=== PATIENT | female | born 1990 | race Caucasian/White ===

== ENCOUNTER 2018-10-13 18:04 | Emergency (ER) | payer MEDICAID ==
[2014-09-08 15:01] VITALS: Wt 99.8 kg
[~2018-10-13 18:04] MED LIST: Acetaminophen/Codeine PO; Ibuprofen PO; MULT1TAB54 PO
--- NOTE | 2018-10-13 18:11 | ER Report ---
History and Physical Time Seen By MD: 18:11 HPI/ROS CHIEF COMPLAINT: abdominal pain HISTORY OF PRESENT ILLNESS: This is a 28 year old female. She is having abdominal pain, started earlier this afternoon, in lower abdomen, crampy and sharp in nature, nothing makes it worse or better. Radiates to her right side and back. No fevers or chills. No dysuria. Normal bowels. No vaginal bleeding. She is 16 weeks , second . Mild discharge. Allergies: Coded Allergies: morphine (Verified Adverse Reaction, Intermediate, NAUSEA/VOMITING, 10/13/18) oxycodone (Verified Adverse Reaction, Intermediate, NAUSEA/VOMITING, 10/13/18) Home Meds Reported Medications Vits W-Ca,Fe,Fa(<1MG) ( VITAMINS) 1 Each Tablet, 1 EACH PO DAILY, TAB 10/13/18 Discontinued Reported Medications [None] No Conflict Check 02/04/14 Reviewed Nurses Notes: Yes Hx Smoking: Yes Smoking Status: Current: Every Day Smoker Exposure to Second Hand Smoke?: Yes Hx Substance Use Disorder: Yes (MARIJUANA, COCAIN OCC) Hx Alcohol Use: Yes Constitutional Vital Sign - Last 24 Hours 10/13/18 10/13/18 10/13/18 10/13/18 18:16 18:24 18:30 18:34 Temp 97.7 Pulse 93 95 Resp 12 B/P (MAP) 124/93 (103) 124/93 130/90 (103) Pulse Ox 95 94 O2 Delivery Room Air 10/13/18 10/13/18 10/13/18 10/13/18 19:04 19:14 19:30 19:34 Pulse 84 75 B/P (MAP) 121/83 (96) 114/76 (89) Pulse Ox 95 95 10/13/18 10/13/18 10/13/18 10/13/18 19:39 20:09 20:30 21:00 Pulse 71 88 B/P (MAP) 110/70 (83) 109/69 (82) Pulse Ox 94 97 Physical Exam General Appearance: Alert, no acute distress. Eyes: Pupils equal and round, no injection. ENT: Normal oral mucosa. Moist mucous membranes. Neck: Neck is supple and non tender. Respiratory: Chest is non tender, lungs are clear to auscultation. Cardiac: regular rate and rhythm, normal peripheral perfusion. Gastrointestinal: Abdomen is soft. Some pain in suprapubic area, mild pain in both right and left lower quadrants as well. No rebound or guarding. Normal bowel sounds. No CVA tenderness. Musculoskeletal: Extremities have full range of motion. Skin: No rashes or lesions. DIFFERENTIAL DIAGNOSIS: After history and physical exam differential diagnosis was considered for abdominal pain in a female with current at 16 weeks including but not limited to urinary tract infection, gastroenteritis, threa tened miscarriage although no bleeding, appendicitis or other ovarian problem Medical Decision Making Data Points Result Diagram: 10/13/18190210/13/181902 Laboratory Hematology Test 10/13/18 18:15 10/13/18 19:03 Urine Color Yellow Urine Clarity Slightly-cloudy Urine pH 5.0 pH (4.8-9.5) Urine Specific [place] 1.028 Urine Protein Negative mg/dL (NEGATIVE) Urine Glucose (UA) Negative mg/dL (NEGATIVE) Urine Ketones Trace mg/dL (NEGATIVE) Urine Blood Negative (NEGATIVE) Urine Nitrite Negative (NEGATIVE) Urine Bilirubin Negative (NEGATIVE) Urine Urobilinogen Negative mg/dL (0.2-1.9) Urine Leukocyte Esterase Negative (NEGATIVE) Urine RBC 1 /HPF (0-2/HPF) Urine WBC 5 /HPF (0-5/HPF) Urine Squamous Epithelial Cells Many /LPF (</=FEW) Urine Calcium Oxalate Crystals Moderate /HPF (NONE) Urine Bacteria Negative /HPF (NONE-FEW) Urine Mucus None /HPF (NONE-FEW) Red Blood Count 4.26 M/uL (4.17-5.56) Mean Corpuscular Volume 91.9 fL (80.0-96.0) Mean Corpuscular Hemoglobin 31.5 pg (26.0-33.0) Mean Corpuscular Hemoglobin Concent 34.2 g/dL (32.0-36.0) Red Cell Distribution Width 12.9 % (11.5-14.5) Mean Platelet Volume 9.4 fL (7.2-11.1) Neutrophils (%) (Auto) 76.4 % (39.4-72.5) Lymphocytes (%) (Auto) 16.3 % (17.6-49.6) Monocytes (%) (Auto) 5.0 % (4.1-12.4) Eosinophils (%) (Auto) 1.8 % (0.4-6.7) Basophils (%) (Auto) 0.5 % (0.3-1.4) Nucleated RBC Relative Count (auto) 0.0 /100WBC Neutrophils # (Auto) 7.7 K/uL (2.0-7.4) Lymphocytes # (Auto) 1.7 K/uL (1.3-3.6) Monocytes # (Auto) 0.5 K/uL (0.3-1.0) Eosinophils # (Auto) 0.2 K/uL (0.0-0.5) Basophils # (Auto) 0.0 K/uL (0.0-0.1) Nucleated RBC Absolute Count (auto) 0.00 K/uL Sodium Level 135 mmol/L (137-145) Potassium Level 4.1 mmol/L (3.5-5.0) Chloride Level 105 mmol/L (98-107) Carbon Dioxide Level 22 mmol/L (22-31) Blood Urea Nitrogen 10 mg/dl (7-18) Creatinine 0.60 mg/dl (0.52-1.04) Glomerular Filtration Rate Calc > 60.0 Random Glucose 80 mg/dl (75-110) Calcium Level 9.2 mg/dl (8.4-10.2) Total Bilirubin 0.2 mg/dl (0.2-1.3) Aspartate Amino Transf (AST/SGOT) 16 U/L (0-35) Alanine Aminotransferase (ALT/SGPT) 22 U/L (0-56) Alkaline Phosphatase 52 U/L (0-126) Total Protein 6.3 g/dl (6.3-8.2) Albumin 3.5 g/dl (3.5-5.0) Chemistry Test 10/13/18 18:15 10/13/18 19:03 Urine Color Yellow Urine Clarity Slightly-cloudy Urine pH 5.0 pH (4.8-9.5) Urine Specific [place] 1.028 Urine Protein Negative mg/dL (NEGATIVE) Urine Glucose (UA) Negative mg/dL (NEGATIVE) Urine Ketones Trace mg/dL (NEGATIVE) Urine Blood Negative (NEGATIVE) Urine Nitrite Negative (NEGATIVE) Urine Bilirubin Negative (NEGATIVE) Urine Urobilinogen Negative mg/dL (0.2-1.9) Urine Leukocyte Esterase Negative (NEGATIVE) Urine RBC 1 /HPF (0-2/HPF) Urine WBC 5 /HPF (0-5/HPF) Urine Squamous Epithelial Cells Many /LPF (</=FEW) Urine Calcium Oxalate Crystals Moderate /HPF (NONE) Urine Bacteria Negative /HPF (NONE-FEW) Urine Mucus None /HPF (NONE-FEW) White Blood Count 10.1 k/uL (4.5-11.0) Red Blood Count 4.26 M/uL (4.17-5.56) Hemoglobin 13.4 g/dL (12.0-16.0) Hematocrit 39.1 % (34.0-47.0) Mean Corpuscular Volume 91.9 fL (80.0-96.0) Mean Corpuscular Hemoglobin 31.5 pg (26.0-33.0) Mean Corpuscular Hemoglobin Concent 34.2 g/dL (32.0-36.0) Red Cell Distribution Width 12.9 % (11.5-14.5) Platelet Count 197 K/uL (150-450) Mean Platelet Volume 9.4 fL (7.2-11.1) Neutrophils (%) (Auto) 76.4 % (39.4-72.5) Lymphocytes (%) (Auto) 16.3 % (17.6-49.6) Monocytes (%) (Auto) 5.0 % (4.1-12.4) Eosinophils (%) (Auto) 1.8 % (0.4-6.7) Basophils (%) (Auto) 0.5 % (0.3-1.4) Nucleated RBC Relative Count (auto) 0.0 /100WBC Neutrophils # (Auto) 7.7 K/uL (2.0-7.4) Lymphocytes # (Auto) 1.7 K/uL (1.3-3.6) Monocytes # (Auto) 0.5 K/uL (0.3-1.0) Eosinophils # (Auto) 0.2 K/uL (0.0-0.5) Basophils # (Auto) 0.0 K/uL (0.0-0.1) Nucleated RBC Absolute Count (auto) 0.00 K/uL Glomerular Filtration Rate Calc > 60.0 Calcium Level 9.2 mg/dl (8.4-10.2) Total Bilirubin 0.2 mg/dl (0.2-1.3) Aspartate Amino Transf (AST/SGOT) 16 U/L (0-35) Alanine Aminotransferase (ALT/SGPT) 22 U/L (0-56) Alkaline Phosphatase 52 U/L (0-126) Total Protein 6.3 g/dl (6.3-8.2) Albumin 3.5 g/dl (3.5-5.0) Urinalysis Test 10/13/18 18:15 Urine Color Yellow Urine Clarity Slightly-cloudy Urine pH 5.0 pH (4.8-9.5) Urine Specific [place] 1.028 Urine Protein Negative mg/dL (NEGATIVE) Urine Glucose (UA) Negative mg/dL (NEGATIVE) Urine Ketones Trace mg/dL (NEGATIVE) Urine Blood Negative (NEGATIVE) Urine Nitrite Negative (NEGATIVE) Urine Bilirubin Negative (NEGATIVE) Urine Urobilinogen Negative mg/dL (0.2-1.9) Urine Leukocyte Esterase Negative (NEGATIVE) Urine RBC 1 /HPF (0-2/HPF) Urine WBC 5 /HPF (0-5/HPF) Urine Squamous Epithelial Cells Many /LPF (</=FEW) Urine Calcium Oxalate Crystals Moderate /HPF (NONE) Urine Bacteria Negative /HPF (NONE-FEW) Urine Mucus None /HPF (NONE-FEW) EKG/Imaging Imaging OB ultrasound greater than 14 weeks HISTORY: 28-year-old female with abdominal pain. LMP 06/14/2018 dating the at 17 weeks 2 days. COMPARISON: None. TECHNIQUE: Transabdominal imaging was performed for assessment of the fetus and maternal pelvic structures. Transvaginal imaging was not performed. FINDINGS: Intrauterine gestations: One. presentation: Vertex. heart rate: 160 bpm. Amniotic fluid volume: Normal; ALIYA 11.2 cm; MVP 3.5 cm. Placenta: Posterior and right lateral, 2 cm from the internal os. Uterus: Gravid, otherwise unremarkable. Maternal adnexa/ovaries: Grossly unremarkable, ovaries not visualized.. Cervix: Grossly long and closed. Gestational Parameters: BPD: 3.8 cm; 17 weeks/ 5 days, 66% HC: 14.2 cm; 17 weeks/ 4 days, 51% AC: 11.7 cm; 17 weeks/ 3 days, 53% FL: 2.3 cm; 17 weeks/ 0 days, 30% Average ultrasound age (AUA): 17 weeks/ 3 days Estimated age based on LMP: 17 weeks/ 2 days Estimated weight (EFW): 186 grams +/- 27 grams, LMP percentile 39% Anatomic Survey: Fetus is too small for a formal survey. Three-vessel cord and cord insertion were documented.. IMPRESSION: 1. Single live intrauterine gestation currently dating at 17 weeks 3 days, concordant with LMP. 2. No abnormalities are seen. 3. Recommend the patient return at 20 weeks for a formal anatomic survey. Report Dictated By: Lenny Rinaldi MD at 10/13/2018 8:32 PM ED Course/Re-evaluation Clinical Indication for ER IV: IV Access ED Course Ultrasound and labs unremarkable. Urinalysis sent for culture. Discussed with patient. Will monitor symptoms and return if needed for worsening pain, fevers, nausea or vomiting. Decision to Disposition Date: Oct 13, 2018 Decision to Disposition Time: 21:29 Depart Departure Latest Vital Signs Vital Signs Date Time Temp Pulse Resp B/P (MAP) Pulse Ox O2 Delivery O2 Flow Rate FiO2 10/13/18 21:00 109/69 (82) 10/13/18 20:09 88 97 10/13/18 18:24 97.7 12 Room Air Impression: Primary Impression: Abdominal pain Condition: Improved Disposition: HOME OR SELF-CARE Patient Instructions: Acute Abdominal Pain (ED) Additional Instructions: No signs of infection on urinalysis and labs were unremarkable. Use tylenol as needed for pain. You can use heating pad as well if this helps. Follow-up with [facility] MACHINE OPERATOR HELPER. Return to the ER if the pain is worsening or if having fevers/chills in the next 24 to 48 hours. Problem Qualifiers Primary Impression: Abdominal pain Abdominal location: lower abdomen, unspecified Qualified Codes: R10.30 - Lower abdominal pain, unspecified DOV LANGSTON MD Oct 13, 2018 18:11
[2018-10-13] MEDS ORDERED: PREN-127 PO (18:29)
[2018-10-13 19:10] LABS: PLATELET COUNT, AUTOMATED 197 K/uL (150-450)
--- NOTE | 2018-10-13 20:43 | RADIOLOGY IMAGING REPORT ---
FACILITY: [facility] PATIENT NAME: Collette Plascencia : 1990 MR: [id number] V: [id number] EXAM DATE: ORDERING PHYSICIAN: DOV LANGSTON TECHNOLOGIST: Location: [facility] - [place] Patient: Collette Plascencia : 1990 Visit/Account:[id number] Date of Sevice: 10/13/2018 OB ultrasound greater than 14 weeks HISTORY: 28-year-old female with abdominal pain. LMP 06/14/2018 dating the at 17 weeks 2 days. COMPARISON: None. TECHNIQUE: Transabdominal imaging was performed for assessment of the fetus and maternal pelvic s tructures. Transvaginal imaging was not performed. FINDINGS: Intrauterine gestations: One. presentation: Vertex. heart rate: 160 bpm. Amniotic fluid volume: Normal; ALIYA 11.2 cm; MVP 3.5 cm. Placenta: Posterior and right lateral, 2 cm from the internal os. Uterus: Gravid, otherwise unremarkable. Maternal adnexa/ovaries: Grossly unremarkable, ovaries not visualized.. Cervix: Grossly long and closed. Gestational Parameters: BPD: 3.8 cm; 17 weeks/ 5 days, 66% HC: 14.2 cm; 17 weeks/ 4 days, 51% AC: 11.7 cm; 17 weeks/ 3 days, 53% FL: 2.3 cm; 17 weeks/ 0 days, 30% Average ultrasound age (AUA): 17 weeks/ 3 days Estimated age based on LMP: 17 weeks/ 2 days Estimated weight (EFW): 186 grams +/- 27 grams, LMP percentile 39% Anatomic Survey: Fetus is too small for a formal survey. Three-vessel cord and cord insertion were documented.. IMPRESSION: 1. Single live intrauterine gestation currently dating at 17 weeks 3 days, concordant with LMP. 2. No abnormalities are seen. 3. Recommend the patient return at 20 weeks for a formal anatomic survey. Report Dictated By: Lenny Rinaldi MD at 10/13/2018 8:32 PM Report E-Signed By: Lenny Rinaldi MD at 10/13/2018 8:39 PM WSN:[email or web address]
[2018-10-13 21:00] VITALS: BP 109/69
== END 2018-10-13 21:34 | disposition home or self-care (01) ==
LOC: EDBD 18:04 → ER 18:21
DX: O26.892 Other specified pregnancy related conditions, second trimester (principal); Z3A.16 16 weeks gestation of pregnancy; R10.30 Lower abdominal pain, unspecified
CPT/HCPCS: 36415; 76805; 81001; 82040; 82247; 82310; 82374; 82435; 82565; 82947; 84075; 84132; 84155; 84295; 84450; 84460; 84520; 85025; 87088; 99284

== ENCOUNTER 2019-03-14 14:44 | Inpatient (IN) | payer MEDICAID ==
[~2019-03-14] VITALS: Ht 157.5 cm; Wt 118.8 kg
[~2019-03-14 14:44] MED LIST changes: +PREN-127 PO
[2019-03-20] MEDS: LR(*) 1000 ML BAG 1,000 ML IV SCH ×2 (02:38→23:34)
[2019-03-20] MEDS ORDERED: ACETAMINOPHEN 325 MG TAB PO PRN (21:25)
[2019-03-20] MEDS ORDERED: ONDANSETRON 4 MG/2 ML VIAL IVP PRN (21:25)
[2019-03-20] MEDS ORDERED: CALCIUM CARBONATE 500 MG CHEW PO PRN (21:25)
[2019-03-20] MEDS ORDERED: PENICILLIN G 5 MILLUN VIAL 5 MIU in NS(*) 0.9% 100 ML MINI-BAG 100 ML IVPB ONE (21:25)
[2019-03-20] MEDS ORDERED: OXYTOCIN 30 UNIT/NS 500 ML 500 ML ONE (22:00)
[2019-03-20] MEDS ORDERED: OXYTOCIN 30 UNIT/NS 500 ML 500 ML IV PRN (22:00)
[2019-03-20 22:15] LABS: PLATELET COUNT, AUTOMATED 204 K/uL (150-450)
[2019-03-20 23:23] VITALS: Ht 157.5 cm; Wt 118.8 kg
[2019-03-20] MEDS ORDERED: fentaNYL CITR 100 MCG/2 ML AMP IT PRN (23:45)
[2019-03-20] MEDS ORDERED: LIDO/EPI 2% MPF 1:200,000 20ML EPI PRN (23:45)
[2019-03-20] MEDS ORDERED: FENTANYL/ROPIVACAINE 100 ML BAG EPI PRN (23:45)
[2019-03-20] MEDS ORDERED: LIDOCAINE/PF 2% 200MG/10ML AMP 200 MG/10 ML AMPUL EPI PRN (23:45)
[2019-03-20] MEDS ORDERED: BUPIVACAINE 0.25% MPF INJ EPI PRN (23:45)
[2019-03-20] MEDS ORDERED: BUPIVACAINE 0.5% INJ 30ML VIAL EPI PRN (23:45)
[2019-03-20] MEDS ORDERED: ePHEDrine 25 MG/5 ML DISP.SYR IVP PRN (23:50)
[2019-03-20] MEDS ORDERED: FAMOTIDINE(*) 20MG/50ML PREMIX 50 ML IVPB PRN (23:51)
[2019-03-20] MEDS ORDERED: METOCLOPRAMIDE 10 MG/2 ML SDV IVP PRN (23:55)
[2019-03-20] MEDS ORDERED: cefOXitin/DEX(*) 2GM/50ML PREM 50 ML IVPB PRN (23:55)
[2019-03-21] VITALS (8 sets, daily range): BP systolic 109–156; BP diastolic 60–84
[2019-03-21] MEDS: LR(*) 1000 ML BAG 1,000 ML IV SCH ×2 (00:02→02:08)
[2019-03-21] MEDS ORDERED: PENICILLIN G 2.5 MILLUN/100 ML 100 ML IVPB SCH ×3 (01:00→18:00)
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
--- NOTE | 2019-03-21 01:16 | Procedure Note ---
Anesthetic Placement Note Anesthesia Plan: LEB Permit for Anesthesia Signed: Yes Anesthesia Technique: Patient Sitting Anesthesia Prep: Chlorhexidine (Betadine used also since no tint/dye in chlorhexidine) Interspace: L 3-4 Local Anesthetic: 1% Lidocaine, 25 Gauge Needle Amount Local - cc's: 2 Anesthesia Needle: 17g Touhy/Schliff Anesthesia Attempts: 1 (Difficult to palpate anatomical landmarks d/t obesity. Approximately L3-4 interspace.....) Loss of Resistance: Normal Saline Depth of GARRET (cm): 7 (no distinguishable ligament felt with needle prior to L.O.R.) Epidural Needle Placement: No CSF, No Blood, No Parasthesia Catheter Insertion (cm): 6 (Catheter secured 13 cm at skin.) Catheter Type: Joel - Spring Wound Epidural Dressing: Tegaderm, Tape (Mefix and silk tape), Other (Benzoin) Anesthesia Tray: Lot Number ([id number]), Expiration Date (05/05/2020), Reference Number ([id number]) Comment: Tolerated well and cooperated well. Anesthesia Medications: Epidural Test Dose: 1.5 Lido/Epi (1:200,000), Dose - mL (3), Time (0023), Negative (No s/s of intrathecal or intravascular injection with test dose.) Epidural Loading Dose: Dose - ml (8), Time (0024), Other (0.5% lidocaine loading dose) Epidural Infusion: 0.2% Ropivicaine, With Fentanyl 2mcg/ml, Start Time: (0039), Other (6 mL of infusion solution given as bolus at time of pump start.) Epidural Pump Setting: Bolus Dose - mL (6), Lockout - Minutes (15), Maintenance Rate - mL/hr (6), Maximum per Hour - mL (24) Complications: None Comment: In-line filter used on epidural infusion tubing. PCEA. Patient instructed on use of PCEA button and s/s of complications to watch for and when to notify RN or anesthesia provider. Verbalizes understanding Pt reports pain at about 1-2 at 5 minutes after loading doses. Left side lying in bed. RACHEL MCKINNON CRNA Mar 21, 2019 01:16
[2019-03-21] MEDS ORDERED: APAP/HYDROCODONE 325/5 TAB PO PRN (03:20)
[2019-03-21] MEDS ORDERED: INFLUENZA VIRUS VAC 0.5ML SYR IM ONLY ONE (03:20)
[2019-03-21] MEDS ORDERED: LANOLIN OINT 7 GM TUBE TP PRN (03:20)
[2019-03-21] MEDS ORDERED: DIPHTH/TETANUS/ACEL. PERTUSSIS IM ONLY ONE (03:20)
[2019-03-21] MEDS ORDERED: MEASLES,MUMP,RUBELLA VAC 0.5ML SUBQ ONE (03:20)
[2019-03-21] MEDS ORDERED: MAGNESIUM HYDROXIDE* 30ML UDCP PO PRN (03:20)
[2019-03-21] MEDS ORDERED: BENZOCAINE 20% 60 ML BTL TP PRN (03:20)
[2019-03-21] MEDS ORDERED: ACETAMINOPHEN 325 MG TAB PO PRN (03:20)
[2019-03-21] MEDS ORDERED: HYDROCORTISONE 2.5% CR 30GM TB PR PRN (03:20)
[2019-03-21] MEDS ORDERED: GLYCERIN/WITCH HAZEL LEAF 1 PK TP PRN (03:20)
--- NOTE | 2019-03-21 03:28 | OB Delivery Note ---
Delivery Note Vaginal Delivery Type: Vacuum (+3 station, bladder empty) Delivery Date: Mar 21, 2019 Delivery Time: 03:01 Estimated Gestational Age(wks): 40.0 Delivery Anesthesia: Epidural Sex: Female [place] Apgars: 1 Minute (8), 5 Minute (9) Repair Needed: Laceration, Labial (left) Estimated Blood Loss: 100 Delivery Complications: Nuchal Cord (x 2), Other (severe variable decelerations) Notes: Presented with SROM and no contractions. Pitocin induction initiated. Progressed from 3 mc at admission to 7 cm by 0050 and 8 cm by 0130. Complete and +2 by 0215. A few deep variables noted prior to going to complete. With pushing I noted again deep variables and vacuum assistance consented for. Vacuum applicator easily applied with head in DESHAWN position. Over next contraction baby's head delivered. Nuchal cord x 2 reduced. Shoulders delivered spontaneously with pushing and remainder of baby followed. Placenta delivered spontaneously and uterus massaged firm. Left labia laceration noted and repaired iw 3-0 Chromic. No complications. Pediatric Critical Care Nurse in Attendence: No Copies to: WALI DAMICO MD ; WALI DAMICO MD Mar 21, 2019 03:28
--- NOTE | 2019-03-21 03:36 | History & Physical ---
History of Present Illness Age of Patient: 28 : 2 Para or TPAL: 1 EDC per LMP: Mar 21, 2019 Estimated Gestational Age: 40 Chief Complaint ruptured membranes History of Present Illness Presents for ruptured membranes and confirmed. GBS in urine and started on PCN prophylaxis. Pt is obese but otherwised uncomplicated. She is a smoker. Past Medical, Surgical, Family and Obstetric Histories reviewed. Please see ACOG chart. History Allergies: Coded Allergies: morphine (Verified Adverse Reaction, Intermediate, NAUSEA/VOMITING, 10/13/18) oxycodone (Verified Adverse Reaction, Intermediate, NAUSEA/VOMITING, 10/13/18) Med Rec Home Meds Reported Medications Vits W-Ca,Fe,Fa(<1MG) ( VITAMINS) 1 Each Tablet, 1 EACH PO DAILY, TAB 10/13/18 Review of Systems All Systems Reviewed/Normal: Yes, Except as Noted Exam General Exam General Apperance: Alert/Awake/No Acute Distress Neuro: No Gross deficits Cardiovascular: Regular Rate and Rhythm Respiratory: No Respiratory Distress Abdomen: Soft, Non-Tender, Non-Distended Musculoskeletal: No Weakness/Pain Extremities: No Cyanosis,Clubbing or Edema Integumentary: Skin Intact without Lesions or Rash Psychological: Alert & Oriented X3 Vaginal Discharge/Fluid?: Clear Fluid Cervical Dialation: 3 Fetus Heart Tone Variabilty: Moderate FHT Accelerations: 15X15 FHT Category: I Medical Decision Making Data Points Result Diagram: 03/20/192149 VTE Prophylasis: Adult Deep Vein Thrombosis/Pulmonary: No Pharmacological Contraindicati: Pt at Low Risk for VTE Mechanical Contraindications: Pt at Low Risk for VTE Assessment and Plan DOUGH SHEETER Plan: Routine Labor/Induct Care Problems: (1) 40 weeks gestation of Assessment & Plan: Pitocin induction/augmentation. 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 WALI DAMICO MD Mar 21, 2019 03:36
--- NOTE | 2019-03-21 04:21 | Anesthesia Progress Note ---
Progress/Maintenance Anesthesia Note Date: Mar 21, 2019 Anesthesia Note Time: 04:05 Pain Intensity: 0 Pump: Off Sensory Level: Mostly Returned Motor Level: Bending Knees-Bilateral Position: Semi-Fowlers Assessment and Plan Anesthesia Plan: LEB Assessment: Epidural worked well per pt. Delivery at 0301. No evidence of complications related to epidural. Anesthesia Stop Day: Mar 21, 2019 Anesthesia Stop Time: 03:01 Epidural Catheter Removal: Removed Catheter Intact, Yes, Removed by: (RN) Removal Date: Mar 21, 2019 (See RN chart for removal time.) RACHEL MCKINNON CRNA Mar 21, 2019 04:21
[2019-03-21] MEDS ORDERED: LR(*) 1000 ML BAG 0 ML ONE (06:19)
[2019-03-21] MEDS ORDERED: IBUPROFEN 800 MG TAB PO SCH ×2 (09:00→12:30)
[2019-03-21] MEDS: DOCUSATE CALCIUM 240 MG CAP PO SCH ×2 (10:02→20:40)
[2019-03-21] MEDS: IBUPROFEN 800 MG TAB PO SCH (20:40)
[2019-03-22 04:45] VITALS: BP 139/81
[2019-03-22] MEDS: IBUPROFEN 800 MG TAB PO SCH ×2 (04:50→12:00)
[2019-03-22 09:38] VITALS: BP 128/77
[2019-03-22] MEDS: DOCUSATE CALCIUM 240 MG CAP PO SCH (09:40)
--- NOTE | 2019-03-22 12:36 | OB/GYN Progress Note ---
OB Subjective Progress Notes Subjective Feeling well. Bleeding light and voiding well. Wants discharge but baby needs another day of light therapy. GI: NEG Nausea : Voiding Well Pain: Mild OB Objective Physical Exam Vital Signs Date Time Temp Pulse Resp B/P (MAP) Pulse Ox O2 Delivery O2 Flow Rate FiO2 03/22/19 09:38 97.4 86 18 128/77 (94) Room Air 03/21/19 23:35 91 Intake and Output 03/22/19 07:04 Intake Total 476 ml Balance 476 ml Intake Oral 476 ml General Appearance: Alert/Awake/No Acute Distress Neurological: No Gross deficits Cardiovascular: Normal Rhythm & Peripheral Pulses, Regular Rate and Rhythm Respiratory: No Respiratory Distress, Clear to Auscultation Abdomen: Soft, Non-Tender, Non-Distended, Fundus Firm, Non-Tender Extremities: No Cyanosis,Clubbing or Edema Integumentary: Skin Intact without Lesions or Rash Psychological: Alert & Oriented X3, Appropriate Mood & Affect Result Diagram: 03/22/19 1010 Assessment and Plan APPLICATION MANAGER Plan: Routine Post- Care Problems: (1) 40 weeks gestation of Assessment & Plan: will discharge to room in today. Reviewed precautions and instructions. 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
[2019-03-22] MEDS ORDERED: IBUP800T37 PO (12:37)
--- NOTE | 2019-03-22 12:40 | OB/GYN Discharge Summary ---
Discharge Summary Reason for Hosp/Final Diag: (1) 40 weeks gestation of Hospital Course & Plan: s/p . Will discharge to room in today. Reviewed precautions and instructions. 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 Arizmendi [phone] Follow up in: 6 wks PP or PO Discharge Diet: As Tolerates Discharge Activity: As Tolerates, No Heavy Lifting x 6 wks, No Heavy Lifting > 10lb, Pelvic Rest Copies to: WALI ARIZMENDI MD ; WALI ARIZMENDI MD Mar 22, 2019 12:40
== END 2019-03-22 13:40 | disposition home or self-care (01) | DRG 807 ==
LOC: OB 03-20 20:41
PROVIDERS: ADMIT Obstetrics & Gynecology; ATTEND Obstetrics & Gynecology
PROC: 10D07Z6 Extraction of Products of Conception, Vacuum, Via Natural or Artificial Opening (ICD-10-PCS; principal; 2019-03-21)
DX: O99.824 Streptococcus B carrier state complicating childbirth (principal); Z37.0 Single live birth; O99.214 Obesity complicating childbirth; O69.81X0 Labor and delivery complicated by cord around neck, without compression, not applicable or unspecified; O99.334 Smoking (tobacco) complicating childbirth; O76 Abnormality in fetal heart rate and rhythm complicating labor and delivery; E66.9 Obesity, unspecified; F17.210 Nicotine dependence, cigarettes, uncomplicated; Z3A.40 40 weeks gestation of pregnancy; Z88.5 Allergy status to narcotic agent
CPT/HCPCS: 36415; 84112; 85025; 85027; 86703; 86850; 86900; 86901; J2001; J2405; J2540; J2590; J7120